=== PATIENT | male | born 1955 | race Caucasian/White ===

== ENCOUNTER 2021-09-16 19:53 | Emergency (ER) | payer OTHER, SELFPAY ==
[2021-09-16 19:55] VITALS: BP 136/108; PULSE 68; RESP 100; TEMP 37.1; O2SAT 97
--- NOTE | 2021-09-16 20:20 | ED.ABDPAIN ---
HPI - Abdominal Pain General Chief Complaint: Abdominal Pain Stated Complaint: abd pain Time Seen by Provider: 09/16/21 20:01 Source: patient History of Present Illness HPI narrative: Patient presents with nausea and epigastric pain. Nausea and vomiting for the past several days having a difficult time keeping fluids and food down. Seen in another ER said he had labs and imaging performed which were all unremarkable he was discharged home on Reglan. He has been taking his Reglan and is not alleviated his symptoms he wanted to try going to another ER for further evaluation. In his epigastric area is a, constant, no radiation, worse with vomiting. Denies any diarrhea or urinary symptoms. Denies any lightheadedness dizziness or chest pain. Does report marijuana use daily for the past 40 years has not used the past couple days. Related Data Home Medications Medication Instructions Recorded Confirmed tadalafil [Cialis] 2.5 mg PO DAILY PRN 09/16/21 09/16/21 Allergies Allergy/AdvReac Type Severity Reaction Status Date / Time No Known Allergies Allergy Verified 09/16/21 19:54 Review of Systems Review of Systems: CONSTITUTIONAL: Denies fever, chills, or sweats. EYES: Denies visual changes, redness, or discharge. ENT: Denies rhinorrhea, congestion, sore throat, or otalgia. CARDIOVASCULAR: Denies chest pain, palpitations, or edema. RESPIRATORY: Denies cough or dyspnea. GASTROINTESTINAL: Abdominal pain with nausea and vomiting GENITOURINARY: Denies dysuria or hematuria. SKIN: Denies rash or itching. MUSCULOSKELETAL: Denies back pain, joint pain, or myalgia. NEUROLOGIC: Denies headache, numbness, dizziness, or weakness. PSYCHIATRIC: Denies anxiety or depression. All systems reviewed & are unremarkable except as noted in HPI and below PMFSH Past Medical History Medical History (Updated 09/16/21 @ 21:24 by Jomar Graham MD) Patient denies significant medical history Social History Social History (Updated 09/16/21 @ 20:22 by Jomar Graham MD) Substance use type: marijuana Exam Narrative: GENERAL: Well-appearing, well-nourished, and in no acute distress. HEAD: Normocephalic, atraumatic. EYES: PERRLA and EOMI. ENT: Nares clear, no rhinorrhea or epistaxis. Mucous membranes moist. NECK: Supple. No masses. No JVD ABDOMEN: Mild epigastric pain with deep palpation soft, nondistended EXTREMITIES: Normal range of motion. No edema. SKIN: Warm, dry, no rash. NEURO: No focal deficits. Alert and oriented x3. PSYCH: Normal mood and affect. Course Reevaluation(s) Reevaluation #1: Patient reports feeling much improved and has resolution of his symptoms. Results and plan reviewed with patient. Patient is comfortable outpatient plan. Date: 09/16/21 Time: 21:21 Vital Signs Vital signs: Vital Signs Temperature 37.1 C 09/16/21 19:55 Pulse Rate 68 09/16/21 19:55 Respiratory Rate 100 H 09/16/21 19:55 Blood Pressure 136/108 H 09/16/21 19:55 Pulse Oximetry 97 09/16/21 19:55 Temperature 37.1 C 09/16/21 19:55 Pulse Rate 75 09/16/21 21:31 Respiratory Rate 18 09/16/21 21:31 Blood Pressure 135/87 09/16/21 21:31 Pulse Oximetry 98 09/16/21 21:31 MDM - Abdominal Pain MDM Narrative Medical decision making narrative: H&P as above, vss, pt looks clinically well, exam with nonacute abdomen, labs with mild elevation in lipase and mild hypokalemia otherwise clinically unremarkable, prior imaging from outside facility reviewed and unremarkable additional labs/img considered, symptomatic relief available as needed, on reevaluation pt continues to looks clinically well. Symptoms remain of unclear etiology may be due to cannabis use versus foodborne illness versus viral process, dns severe sepsis, severe dehydration, perforation, bowel obstruction, appendicitis, diverticulitis. plan to tx/monitor as op w/ pcm f/u findings/plan discussed with pt, pt agree/comfortable with plan, return precautions given L
[2021-09-16] MEDS: ONDANSETRON INJ 4 MG/2 ML VIAL IV PUSH (20:36)
[2021-09-16] MEDS: DEXTROSE 5%/0.45% SOD CHL 1,000 ML 1000 ML IV CONT (20:36)
[2021-09-16] MEDS: MAG HYDROX/AL HYDROX/SIMETH 30 ML UDC PO (20:37)
[2021-09-16] MEDS: LIDOCAINE HCL 2% VISC SOLN 15 ML UDC 20 ML PO (20:37)
[2021-09-16 20:47] LABS: Basophils Percent Auto 0.3 % (0.2-1.2); Eosinophils Percent Auto 0.2 % (0-4.4); Hematocrit 45.6 % (42.0-52.0); Hemoglobin 15.7 g/dL (14.0-18.0); Immature Granulocyte Absolute 0.02 K/mm3 (0.00-0.031); Immature Granulocyte Percent A 0.3 % (0-0.5); Lymphocytes Absolute Auto 1.26 K/mm3 (0.9-3.2); Lymphocytes Percent Auto 19.9 % (18.3-44.2); Mean Corpuscular HGB Conc 34.4 g/dl (32-36); Mean Corpuscular Hemoglobin 29.7 pg (26-34); Mean Corpuscular Volume 86.4 fl (80-100); Mean Platelet Volume 9.9 fl (7.4-10.4); Monocytes Absolute Auto 0.5 K/mm3 (0.1-0.6); Neutrophils Absolute Auto 4.5 K/mm3 (1.3-6.7); Neutrophils Percent Auto 71.3 % (45.5-73.1); Platelet Count Result 248 k/mm3 (150-375); Red Blood Count 5.28 M/mm3 (4.6-6.20); Red Cell Distribution Width 11.8 % (11.5-14.5); White Blood Count 6.3 K/mm3 (4.5-10.0)
[2021-09-16 20:56] LABS: Lactic Acid Reflex 1.1 mmol/L (0.7-2.0)
[2021-09-16 20:58] LABS: Alanine Aminotransferase 37 U/L (6-50); Albumin Level 4.4 g/dL (3.5-5.1); Alkaline Phosphatase 70 U/L (38-126); Anion Gap 9 mmol/L (8-16); Aspartate Amino Transferase 37 U/L (17-59); Blood Urea Nitrogen 14 mg/dL (9-20); Calcium 8.6 mg/dL (8.4-10.2); Carbon Dioxide 21 mmol/L (22-30); Chloride 107 mmol/L (98-107); Estimated CRCL calculation 72 ml/min; Estimated Glomerular Filt Rate > 60; Glucose 137 mg/dL (65-110); Lipase 340 U/L (23-300); Potassium 3.2 mmol/L (3.4-5.0); Sodium 137 mmol/L (137-145)
[2021-09-16] MEDS: POTASSIUM CHLORIDE 20 MEQ PACKET (FOR LIQUID) 40 MEQ PO (21:23)
[2021-09-16 21:31] VITALS: BP 135/87; PULSE 75; RESP 18; O2SAT 98
== END 2021-09-16 21:46 | disposition home or self-care (01) ==
PROVIDERS: Emergency Provider Emergency Medicine
DX: R10.13 Epigastric pain (principal); R11.2 Nausea with vomiting, unspecified; E87.6 Hypokalemia
CPT/HCPCS: 36415; 80053; 83605; 83690; 85025; 96374; 99284; A9270; J2405